=== PATIENT | female | born 1945 | race Caucasian/White ===

== ENCOUNTER → 2017-10-06 | Outpatient (CLI) | payer BC ==
[2017-10-06 17:45] LABS: BASO % 0.3 %; BASO ABS # 0.02 K/uL (0-0.2); EOS % 1.5 %; HEMATOCRIT 48.3 % (37-47); HEMOGLOBIN 16.1 g/dL (12.0-16.0); IG# 0.02 K/uL (0.00-0.02); LYMPH % 27.4 %; LYMPH ABS # 1.83 K/uL (1.2-3.4); MEAN CORPUSCULAR HEMOGLOBIN 30.3 pg (25-34); MEAN CORPUSCULAR HGB CONC 33.3 g/dl (32-36); MEAN PLATELET VOLUME 11.1 fL (7.4-10.4); MONO % 7.5 %; PLATELET COUNT 290 K/uL (130-400); RED CELL DISTRIBUTION WIDTH CV 15.4 % (11.5-14.5); RED CELL DISTRIBUTION WIDTH SD 51.6 fL (36.4-46.3); WHITE BLOOD COUNT 6.67 K/uL (4.8-10.8)
[2017-10-06 18:26] LABS: ALBUMIN 3.6 gm/dl (3.4-5.0); ALT/SGPT 22 U/L (12-78); AST/SGOT 22 U/L (15-37); BLOOD UREA NITROGEN 13 mg/dl (7-18); CALCIUM 9.3 mg/dl (8.5-10.1); CARBON DIOXIDE 29 mmol/L (21-32); CREATININE 1.12 mg/dl (0.60-1.20); GLUCOSE 95 mg/dl (70-99); POTASSIUM 4.1 mmol/L (3.5-5.1); SODIUM 137 mmol/L (136-145)
[2017-10-06 18:36] LABS: ALKALINE PHOSPHATASE 81 U/L (45-117); CHOLESTEROL 173 mg/dl (0-200); LDL CHOLESTEROL CALCULATED 102 mg/dl; TOTAL PROTEIN 8.1 gm/dl (6.4-8.2)
== END | disposition home or self-care (01) ==
LOC: C.LABMFLN 11:41
PROVIDERS: ATTEND Family Medicine
DX: F32.9 Major depressive disorder, single episode, unspecified (principal); E78.5 Hyperlipidemia, unspecified

== ENCOUNTER 2020-06-20 15:20 | Observation (INO) ==
[2020-06-20] MEDS ORDERED: fentaNYL citrate 100 MCG/2 ML VIAL IV STA (15:50)
--- NOTE | 2020-06-20 16:05 | XRay Report ---
SINGLE VIEW CHEST CLINICAL HISTORY: Dyspnea. FINDINGS: 2 AP, portable, upright chest radiographs are compared to study dated 02/29/2020. Impression degraded The cardiomediastinal silhouette is unremarkable noting atherosclerotic calcification of the thoracic aorta. Emphysematous change is suspected. Chronic interstitial thickening is similar to pre vious. Scarring/atelectasis is noted at the lung bases. No airspace consolidation or large pleural ef fusion is identified. There is asymmetric nodularity identified at the right apex. No pneumothorax is seen. The skeletal structures are osteopenic. The bony thorax is grossly intact. IMPRESSION: 1. No acute cardiopulmonary abnormality is identified. 2. Suspect emphysema. 3. There is asymmetric nodularity seen at the right apex. Although this could represent pleural-paren chymal scarring, follow-up with a dedicated chest CT is recommended to exclude underlying pulmonary l esion. ACT 112: Negative or not required by law. Electronically signed by: Santos Pedersen M.D. 06/20/2020 4:03 PM
--- NOTE | 2020-06-20 16:16 | Electrocardiogram Report ---
Test Reason : Blood Pressure : / mmHG Vent. Rate : 108 BPM Atrial Rate : 108 BPM P-R Int : 162 ms QRS Dur : 060 ms QT Int : 334 ms P-R-T Axes : 050 -23 042 degrees QTc Int : 447 ms Poor data quality, interpretation may be adversely affected Sinus tachycardia Normal ECG When compared with ECG of 29-FEB-2020 09:07, No significant change was found Confirmed by Piter Coffey ([id number]) on 06/20/2020 4:16:27 PM Referred By: Confirmed By:Piter Coffey
[2020-06-20 16:37] LABS: Basophils # (auto) 0.02 K/uL (0-0.2); Basophils % (auto) 0.3 %; Eosinophils # (auto) 0.06 K/uL (0-0.5); Eosinophils % (auto) 0.8 %; Hematocrit (blood only) 41.4 % (37-47); Hemoglobin 13.5 g/dL (12.0-16.0); Immature Granulocytes # (auto) 0.01 K/uL (0.00-0.02); Immature Granulocytes % (auto) 0.1 %; Lymphocytes % (auto) 20.3 %; Mean Corpuscular Hgb Conc 32.6 g/dL (32-36); Mean Platelet Volume 9.4 fL (7.4-10.4); Monocytes # (auto) 0.75 K/uL (0.11-0.59); Monocytes % (auto) 9.5 %; Neutrophils # (auto) 5.44 K/uL (1.4-6.5); Platelet Count 252 K/uL (130-400); RDW Coefficient of Variation 15.1 % (11.5-14.5); RDW Standard Deviation 48.7 fL (36.4-46.3); Red Blood Count 4.65 M/uL (4.2-5.4); White Blood Count 7.88 K/uL (4.8-10.8)
[2020-06-20 16:54] LABS: Alanine Aminotransferase 14 U/L (12-78); Albumin Level 3.1 gm/dl (3.4-5.0); Aspartate Aminotransferase 12 U/L (15-37); Blood Urea Nitrogen 14 mg/dl (7-18); Carbon Dioxide 24 mmol/L (21-32); Chloride 111 mmol/L (98-107); Creatinine Clr Calc Pharmacy 39.1 ml/min; Est GFR (African American) 70.5; Est GFR (Non-African American) 60.9; Glucose 95 mg/dl (70-99); Potassium 3.9 mmol/L (3.5-5.1); Sodium 141 mmol/L (136-145)
[2020-06-20 16:59] LABS: Albumin Globulin Ratio 0.7 (0.9-2); Alkaline Phosphatase 61 U/L (45-117); Bilirubin,Total 0.5 mg/dl (0.2-1); Globulin 4.3 gm/dl (2.5-4.0); Total Protein 7.4 gm/dl (6.4-8.2); Troponin I < 0.015 ng/ml (0-0.045)
[2020-06-20 17:30] LABS: D Dimer 2210 ug/L FEU (0-500)
[2020-06-20] MEDS ORDERED: OPTIRAY 320 125ml IV ONE (18:14)
--- NOTE | 2020-06-20 18:26 | Emergency Department Note ---
Impression & Plan Hypoxia, Chronic obstructive pulmonary disease, D-dimer, elevated ED Provider Note INFORMANT: Patient ED PROVIDER(S): Isidoro Galvez MD CHIEF COMPLAINT: Hypoxia PLAN: Disposition: Admitted Condition: Good MEDICAL DECISION MAKING: Patient presented from the surgery center because of persistent hypoxia after shoulder surgery. She states she is feeling well today and went to surgery. She did receive a nerve block. She received IV fentanyl as well. The patient presented here and was feeling well. She had moderate pain in her arm from the surgery. She was given a dose of IV fentanyl. She was monitored. She was maintained on oxygen and then weaned to room air. The patient had an unremarkable CBC and chemistry panel. Troponin was negative. ECG shows a mild sinus tachycardia but no acute ischemia. The patient had a negative chest x- ray. The patient had a significantly elevated D-dimer. Even though the patient was weaned off of oxygen when she attempted to ambulate the patient's oxygen dr opped significantly to 79%. In light of the hypoxia and anesthesias concern for PE the patient underwent CT PE study testing. This was negative for acute process. The patient had some adenopathy in abnormality of the right upper lobe. She was informed and the need for follow-up CT imaging. Due to the persistent hypoxia when off oxygen she was given a dose of Solu-Medrol and a DuoNeb. She will need further management in the hospital. She was observed for several hours but continues to need supplemental oxygen which she does not usually use at home. Consultation was made with Dr. Pang of internal medicine. Patient was evaluated in ER and admitted for further management. Triage Nursing notes reviewed and agree them. Prior medical records reviewed regarding recent surgery treatment today. Vital Signs: reviewed and remarkable for hypoxia off of supplemental oxygen Differential diagnosis: Complication of nerve block, reactive airway disease, pneumonia, pneumothorax, COPD, CHF, infections, cardiac ischemia, pulmonary embolism, musculoskeletal, gastrointestinal, as well as other pathologies. Diagnostics interpreted by me: ECG: Twelve-lead ECG reveals sinus tachycardia at 108 bpm. There is no evidence of ST elevation or depression. No PACs or PVCs. Normal axis and QRS. Cardiac Monitoring: Cardiac monitoring ordered by me: The patient was placed on continuous cardiac monitoring and observed. It revealed a normal sinus rhythm at 92 beats per minute without ectopy or evidence of dysrhythmia. Imaging studies: Chest x-ray. Findings: A chest x-ray was performed and revealed no pneumothorax, effusion, infiltrate, pulmonary edema, free air under the diaphragm, or wide mediastinum. Nodule noted in the right upper lobe that radiology recommended CT imaging for further evaluation. Patient states she is aware of this. Consultation(s): Dr. Pang of internal medicine. HPI: The patient is a 68 year old female who presents to the Emergency Room with complaints of hypoxia from the surgery center. This started a few hours ago after having general anesthesia for a right wrist surgery and is persisting. The patient also notes the following associated symptoms, pain in the right wrist otherwise no difficulty breathing. The patient has been given an albuterol treatment and oxygen for relieving factors. Current pain is rated as 5/10. Patient states she was in good health prior to the procedure. Nursing states that the patient was tested for coronavirus prior to surgery and was negative. Pt denies LOC, headache, fevers, chills, diaphoresis, visual changes, neck pain, chest pain, breathing difficulties, nausea, vomiting, abdominal pain, back pain, melena, hematochezia, urinary symptoms, numbness, weakness, lymphadenopathy, rash, or other complaints. ROS: See above HPI for pertinent positives & negatives. A total of 10 systems reviewed and were otherwise negative. PAST MEDICAL HISTORY:See Below, COPD PAST SURGICAL HISTORY:See Below, FAMILY HISTORY:See Below SOCIAL HISTORY:See Below, retired HOME MEDICATIONS:See Below ALLERGIES:See Below VITALS:See Below PHYSICAL EXAMINATION: GENERAL: Awake, alert, well-appearing, in no distress HENT: Normocephalic, atraumatic. Oropharynx unremarkable. EYES: Normal conjunctiva. Sclera non-icteric. NECK: Inspection normal. Non-tender. Supple. No nuchal rigidity. FROM. No masses. RESPIRATORY: Clear to auscultation. No wheezes. No rales. Normal respiratory effort. CARDIAC: Normal rate. Normal rhythm. No murmurs. No rubs. Extremities warm and well perfused. Pulses equal. No JVD. GI: Soft, non-distended. No tenderness to palpation. No rebound or guarding. No masses. RECTAL: Deferred. MUSCULOSKELETAL: Right upper extremity casted post surgery. Chest examination reveals no tenderness. The back is symmetrical on inspection without obvious abnormality. There is no CVA tenderness to palpation. No joint edema. LOWER EXTREMITIES: Calves are equal size bilaterally and non-tender. No edema. No discoloration. NEURO: Normal sensorium. No sensory or motor deficits noted. SKIN: No rash or jaundice noted. ED COURSE: Critical Care: None Isidoro Galvez MD Past Med/Surg History Medical History (Updated 06/20/20 @ 18:21 by Isidoro Galvez MD) Amaurosis fugax Cervicalgia Chronic obstructive pulmonary disease Depression Fibrocystic breast disease Generalized anxiety disorder History of TIA (transient ischemic attack) Hyperlipidemia Postmenopausal osteoporosis Solitary pulmonary nodule Surgical History (Updated 06/20/20 @ 20:21 by Angel Reno) History of cataract surgery BILATERAL History of temporal artery biopsy (03/05/20) Left Temporal Artery Biopsy Dr. Rodriguez 03/05/2020 S/P appendectomy S/P breast biopsy S/P colonoscopy 2013 S/P hysterectomy Family History Father Coronary heart disease Sister Coronary heart disease Son Coronary heart disease Brother Diabetes Heart disease Hypertension Aunt Cancer Denies family history of Ovarian cancer Prostate cancer Myocardial infarction Breast cancer Social History Smoking Status: Former smoker Tobacco Type: Cigarettes Age Started Using Tobacco: 26; Age Quit Using Tobacco: 58; packs per day: 1; Second Hand Exposure: No; Hx Alcohol Use: No Hx Substance Use: No Preferred Language: Maltese Communication Ability: Effective Visual Impairment: Limited Hearing Ability: Hard of Hearing Copra Processor Required: No Beliefs That Will Affect Care: None marital status: / Current Living Situation: Alone current occupational status: retired current occupation: caregiver Feels Safe at Home: Yes Childhood Exposure to Second-Hand Smoke: Yes caffeine: Yes Dental Care, Regularly: Yes Physical Activity Frequency: Daily Seatbelt Use: always Sunscreen Use: Yes Do you think of yourself as: straight/heterosexual Assistive Devices: Glasses Allergies Allergies Allergy/AdvReac Type Severity Reaction Status Date / Time atorvastatin Allergy Mild leg cramps Verified 04/04/20 10:00 ibandronate sodium Allergy Mild leg cramps Verified 04/04/20 10:00 [From Boniva] influenza virus vacc Allergy Mild leg cramps Verified 04/04/20 10:00 trivalent, split [From Fluzone] Penicillins Allergy Mild Rash Verified 04/04/20 10:00 Home Meds Home Medications Medication Instructions Recorded Confirmed latanoprost 0.005 % eye drops 1 drops OP QPM 02/07/20 06/20/20 escitalopram oxalate 10 mg PO QAM 02/28/20 06/20/20 potassium gluconate 595 mg PO QAM 02/28/20 06/20/20 Previous Rx's Medication Instructions Recorded calcium carbonate 600 mg (1,500 1 tab PO DAILY #90 tab 02/21/19 mg)-vitamin D3 400 unit tablet cyanocobalamin (vitamin B-12) 1,000 mcg PO DAILY #90 tab 02/21/19 1,000 mcg tablet,extended release multivitamin 1 tab PO DAILY #90 tab 02/21/19 tiotropium bromide 18 mcg capsule 1 cap INHALATION DAILY #90 puffs 08/08/19 with inhalation device aspirin 81 mg tablet,delayed 81 mg PO DAILY #30 tab 04/04/20 release pravastatin 20 mg tablet 20 mg PO DAILY #90 tab 04/04/20 Results & Data (ED) Vital Signs Vital Signs - 24 hr 06/20/20 15:28 06/20/20 15:30 06/20/20 15:47 Temperature 36.7 C Temperature Source Oral Pulse Rate 110 H 114 H 114 H Pulse Rate [Right Finger] Pulse Rate from SpO2 Sensor 111 H 112 H Respiratory Rate 23 20 26 H Respiratory Effort / Characteristics Non-Labored Spontaneous Respiratory Depth Normal Respiratory Pattern Regular Blood Pressure 104/89 104/89 Blood Pressure [Left Arm] Blood Pressure Mean 95 94 Blood Pressure Mean [Left Arm] Blood Pressure Position Sitting Blood Pressure Position [Left Arm] Pulse Oximetry 94 87 L 94 Oxygen Delivery Method Nasal Cannula Room Air Nasal Cannula Oxygen Flow Rate 3 3 Sepsis Recent Fever Within 48 Hours No Sepsis New/Unexplained Change in Mental Status N/A Sepsis Action Taken by Nursing No Action Required 06/20/20 15:50 06/20/20 16:00 06/20/20 16:10 Temperature Temperature Source Pulse Rate 92 H 91 H 90 Pulse Rate [Right Finger] Pulse Rate from SpO2 Sensor 93 H 90 90 Respiratory Rate 23 20 30 H Respiratory Effort / Characteristics Respiratory Depth Respiratory Pattern Blood Pressure Blood Pressure [Left Arm] Blood Pressure Mean Blood Pressure Mean [Left Arm] Blood Pressure Position Blood Pressure Position [Left Arm] Pulse Oximetry 95 96 96 Oxygen Delivery Method Nasal Cannula Nasal Cannula Nasal Cannula Oxygen Flow Rate 3 3 3 Sepsis Recent Fever Within 48 Hours Sepsis New/Unexplained Change in Mental Status Sepsis Action Taken by Nursing 06/20/20 16:20 06/20/20 16:30 06/20/20 16:31 Temperature Temperature Source Pulse Rate 94 H 90 89 Pulse Rate [Right Finger] Pulse Rate from SpO2 Sensor 94 H 89 88 Respiratory Rate 34 H 17 31 H Respiratory Effort / Characteristics Respiratory Depth Respiratory Pattern Blood Pressure 139/88 Blood Pressure [Left Arm] Blood Pressure Mean 104 Blood Pressure Mean [Left Arm] Blood Pressure Position Blood Pressure Position [Left Arm] Pulse Oximetry 93 97 96 Oxygen Delivery Method Nasal Cannula Nasal Cannula Nasal Cannula Oxygen Flow Rate 3 3 3 Sepsis Recent Fever Within 48 Hours Sepsis New/Unexplained Change in Mental Status Sepsis Action Taken by Nursing 06/20/20 16:40 06/20/20 16:50 06/20/20 17:00 Temperature Temperature Source Pulse Rate 98 H 93 H 90 Pulse Rate [Right Finger] Pulse Rate from SpO2 Sensor 98 H 93 H 91 H Respiratory Rate 22 27 H 25 H Respiratory Effort / Characteristics Respiratory Depth Respiratory Pattern Blood Pressure 124/88 Blood Pressure [Left Arm] Blood Pressure Mean 94 Blood Pressure Mean [Left Arm] Blood Pressure Position Blood Pressure Position [Left Arm] Pulse Oximetry 93 95 95 Oxygen Delivery Method Nasal Cannula Nasal Cannula Nasal Cannula Oxygen Flow Rate 3 3 3 Sepsis Recent Fever Within 48 Hours Sepsis New/Unexplained Change in Mental Status Sepsis Action Taken by Nursing 06/20/20 17:10 06/20/20 17:20 06/20/20 19:18 Temperature Temperature Source Pulse Rate 92 H 93 H Pulse Rate [Right Finger] 97 H Pulse Rate from SpO2 Sensor 92 H 92 H Respiratory Rate 21 15 16 Respiratory Effort / Characteristics Non-Labored Spontaneous Respiratory Depth Normal Respiratory Pattern Regular Blood Pressure Blood Pressure [Left Arm] 140/98 Blood Pressure Mean Blood Pressure Mean [Left Arm] 112 Blood Pressure Position Blood Pressure Position [Left Arm] Lying Pulse Oximetry 92 93 94 Oxygen Delivery Method Nasal Cannula Room Air Nasal Cannula Oxygen Flow Rate 3 3 Sepsis Recent Fever Within 48 Hours Sepsis New/Unexplained Change in Mental Status Sepsis Action Taken by Nursing 06/20/20 19:24 06/20/20 19:28 Temperature Temperature Source Pulse Rate Pulse Rate [Right Finger] 90 Pulse Rate from SpO2 Sensor Respiratory Rate 24 Respiratory Effort / Characteristics Non-Labored Spontaneous SOB on Exertion Respiratory Depth Respiratory Pattern Blood Pressure Blood Pressure [Left Arm] Blood Pressure Mean Blood Pressure Mean [Left Arm] Blood Pressure Position Blood Pressure Position [Left Arm] Pulse Oximetry 79 L 79 L Oxygen Delivery Method Room Air Room Air Oxygen Flow Rate Sepsis Recent Fever Within 48 Hours Sepsis New/Unexplained Change in Mental Status Sepsis Action Taken by Nursing Laboratory Data Result diagrams: 06/20/20 16:23 06/20/20 16:23 Lab Results 06/20/20 06/20/20 06/20/20 Range/Units 16:23 16: 16:23 WBC 7.88 (4.8-10.8) K/uL RBC 4.65 (4.2-5.4) M/uL Hgb 13.5 (12.0-16.0) g/dL Hct 41.4 (37-47) % MCV 89.0 (80-100) fL MCH 29.0 (25-34) pg MCHC 32.6 (32-36) g/dL RDW Std Deviation 48.7 H (36.4-46.3) fL RDW Coeff of Faviola 15.1 H (11.5-14.5) % Plt Count 252 (130-400) K/uL MPV 9.4 (7.4-10.4) fL Immature Gran % (Auto) 0.1 % Neut % (Auto) 69.0 % Lymph % (Auto) 20.3 % [place] % (Auto) 9.5 % Eos % (Auto) 0.8 % Baso % (Auto) 0.3 % Neut # (Auto) 5.44 (1.4-6.5) K/uL Lymph # (Auto) 1.60 (1.2-3.4) K/uL [place] # (Auto) 0.75 H (0.11-0.59) K/uL Eos # (Auto) 0.06 (0-0.5) K/uL Baso # (Auto) 0.02 (0-0.2) K/uL Immature Gran # (Auto) 0.01 (0.00-0.02) K/uL D-Dimer 2210 H* (0-500) ug/L FEU Sodium 141 (136-145) mmol/L Potassium 3.9 (3.5-5.1) mmol/L Chloride 111 H (98-107) mmol/L Carbon Dioxide 24 (21-32) mmol/L Anion Gap 5.0 (3-11) BUN 14 (7-18) mg/dl Creatinine 0.91 (0.6-1.2) mg/dl Est Cr Clr Drug Dosing 39.1 ml/min Est GFR ( Amer) 70.5 Est GFR (Non-Af Amer) 60.9 BUN/Creatinine Ratio 15.0 (10-20) Glucose 95 (70-99) mg/dl Calcium 9.0 (8.5-10.1) mg/dl Total Bilirubin 0.5 (0.2-1) mg/dl AST 12 L (15-37) U/L ALT 14 (12-78) U/L Alkaline Phosphatase 61 (45-117) U/L Troponin I < 0.015 (0-0.045) ng/ml Total Protein 7.4 (6.4-8.2) gm/dl Albumin 3.1 L (3.4-5.0) gm/dl Globulin 4.3 H (2.5-4.0) gm/dl Albumin/Globulin Ratio 0.7 L (0.9-2) Administered Medications Discontinued Medications Albuterol (Albut/Ipratrop 3mg/0.5mg Neb 3 Ml Vial) 3 ml NEB NOW STA Stop: 06/20/20 19:00 Last Admin: 06/20/20 19:27 Dose: 3 ml Documented by: [id number] Fentanyl Citrate (Fentanyl Citrate 100 Mcg/2 Ml Vial) 50 mcg IV NOW STA Stop: 06/20/20 15:51 Last Admin: 06/20/20 16:30 Dose: 50 mcg Documented by: [id number] Ioversol (Optiray 320 125ml) 120 ml IV ONCE ONE Stop: 06/20/20 18:15 Last Admin: 06/20/20 18:15 Dose: 120 ml Documented by: [id number] Methylprednisolone (Methylprednisolone 125 Mg/2 Ml Vial) 125 mg IV NOW STA Stop: 06/20/20 19:00 Last Admin: 06/20/20 19:15 Dose: 125 mg Documented by: [id number] Morphine Sulfate (Morphine Sulfate 2 Mg/Ml Carp) Confirm Administered Dose 2 mg .ROUTE .STK-MED ONE Stop: 06/20/20 21:17 Last Admin: 06/20/20 21:17 Dose: 2 mg Documented by: [id number] Discharge Plan Visit Data Chief Complaint: Respiratory Problems Stated Complaint: TACHYCARDIA, HYPOXIA ED Provider: Isidoro Galvez Discharge Problem: Hypoxia, Chronic obstructive pulmonary disease, D-dimer, elevated Patient Disposition: Admitted As Inpatient Discharge Instructions Interventions: ED Discharge Assessment Last Done: 06/20/20 21:01
--- NOTE | 2020-06-20 18:51 | CT Scan Report ---
CHEST CTA for PULMONARY ARTERIES CT DOSE: 320.58 mGy.cm HISTORY: Shortness of breath. Positive d-dimer. TECHNIQUE: Multiaxial CT images of the chest were performed following the intravenous administration of contrast to evaluate the pulmonary arteries. Maximal intensity projection images were also obtaine d. A dose lowering technique was utilized adhering to the principles of ALARA. COMPARISON STUDY: Chest 06/20/2020. FINDINGS: There is an old, healed midsternal fracture. Normal caliber thoracic aorta with no evidence for dissection. No pleural or pericardial effusions. The heart is normal in size. No filling defects within the pulmonary arteries to suggest pulmonary embolus. No mediastinal hilar lymphadenopathy. Li mited views of the upper abdomen demonstrate normal liver and spleen. Normal esophagus. No suspicious lytic or blastic osseous lesions. No pneumothorax. The central airways are patent. Moderate emphysem a. Biapical irregular densities. These favor scarring. There is asymmetric focal irregular thickening within the right lung apex on image 234. This measures 12 mm in thickness. This also favors scarring but bears watching on future examinations. 6 mm nodule along the left major fissure on image 119. A few bibasilar densities favor subsegmental atelectasis. Mild diffuse interstitial thickening which is likely chronic. IMPRESSION: 1. No evidence for pulmonary embolus. 2. Biapical irregular densities. These favor scarring. However, there is asymmetric irregular focal t hickening at the right lung apex measuring up to 12 mm in thickness. This also favors scarring. [address] follow-up recommended to ensure stability. 3. A 6 mm nodule along the left major fissure. This also requires follow-up. 4. Emphysema. ACT 112: Negative or not required by law. Electronically signed by: Jj Whitney M.D. 06/20/2020 6:50 PM
[2020-06-20] MEDS ORDERED: methylPREDNISolone 125 MG/2 ML VIAL IV STA (18:59)
[2020-06-20] MEDS ORDERED: ALBUT/IPRATROP 3MG/0.5MG NEB 3 ML VIAL NEB STA (18:59)
--- NOTE | 2020-06-20 20:24 | Medical Student H&P ---
Date of Service June 20, 2020 Assessment & Plan (1) Hypoxia: Desaturation to 79% with ambulation. Differential includes: COPD exacerbation possibly exacerbated by anesthesia, pneumothorax, respiratory infection Labs show no sign of acute infection. Coronavirus was negative 02/29/2020. Chest Xray and CT show no pneumothorax or focal consolidation; show signs consistent with emphysema Treatment plan includes telemetry admission, nebulizer treatment q4, oxygen as needed, consider azithromycin for COPD exacerbation. Short term goals: oxygen titration to room air. alf goals: smoking cessation, recommend scheduling PFT's outpt, CT notes a 6 mm nodule along the left major fissure with outpt follow up recommended. (2) Post-operative state: Patient is currently splinted and pain is well controlled. History of Present Illness Chief Complaint: Difficulty Breathing Primary Care Provider: Maria C Thornton MD Lisa is a 75y/o female with a pmhx of COPD and TIA. She presents with hypoxic respiratory failure from the surgery center following a right upper extremity procedure. She endorses subjective dyspnea, noting slight improvement in the ED. In the ED she desaturated to 79% with assisted ambulation to the bathroom. In the week leading up to surgery she did notice mildly increased shortness of breath at home with exertion. She says that she coughed "once or twice" today with some yellow sputum. In February she had an outpatient surgical procedure which she tolerated well, she was successfully released from recovery after approximally 45 minutes without any difficulty breathing. At home Lisa does not require oxygen and is a current pack per day cigarette smoker. Allergies Allergy/AdvReac Type Severity Reaction Status Date / Time atorvastatin Allergy Mild leg cramps Verified 04/04/20 10:00 ibandronate sodium Allergy Mild leg cramps Verified 04/04/20 10:00 [From Boniva] influenza virus vacc Allergy Mild leg cramps Verified 04/04/20 10:00 trivalent, split [From Fluzone] Penicillins Allergy Mild Rash Verified 04/04/20 10:00 Home Medications Home Medications Medication Instructions Recorded Confirmed Type calcium carbonate 600 mg (1,500 1 tab PO DAILY #90 tab 02/21/19 06/20/20 Rx mg)-vitamin D3 400 unit tablet cyanocobalamin (vitamin B-12) 1,000 mcg PO DAILY #90 tab 02/21/19 06/20/20 Rx 1,000 mcg tablet,extended release multivitamin 1 tab PO DAILY #90 tab 02/21/19 06/20/20 Rx tiotropium bromide 18 mcg capsule 1 cap INHALATION DAILY #90 puffs 08/08/19 06/20/20 Rx with inhalation device latanoprost 0.005 % eye drops 1 drops OP QPM 02/07/20 06/20/20 History escitalopram oxalate 10 mg PO QAM 02/28/20 06/20/20 History potassium gluconate 595 mg PO QAM 02/28/20 06/20/20 History aspirin 81 mg tablet,delayed 81 mg PO DAILY #30 tab 04/04/20 06/20/20 Rx release pravastatin 20 mg tablet 20 mg PO DAILY #90 tab 04/04/20 06/20/20 Rx Past Med/Surg History Medical History (Updated 06/20/20 @ 18:21 by Isidoro Galvez MD) Amaurosis fugax Cervicalgia Chronic obstructive pulmonary disease Depression Fibrocystic breast disease Generalized anxiety disorder History of TIA (transient ischemic attack) Hyperlipidemia Postmenopausal osteoporosis Solitary pulmonary nodule Surgical History (Updated 06/20/20 @ 20:21 by Angel Reno) History of cataract surgery BILATERAL History of temporal artery biopsy (03/05/20) Left Temporal Artery Biopsy Dr. Rodriguez 03/05/2020 S/P appendectomy S/P breast biopsy S/P colonoscopy 2013 S/P hysterectomy Family History Father Coronary heart disease Sister Coronary heart disease Son Coronary heart disease Brother Diabetes Heart disease Hypertension Aunt Cancer Denies family history of Ovarian cancer Prostate cancer Myocardial infarction Breast cancer Social History Smoking Status: Former smoker Tobacco Type: Cigarettes Age Started Using Tobacco: 26; Age Quit Using Tobacco: 58; packs per day: 1; Second Hand Exposure: No; Hx Alcohol Use: No Hx Substance Use: No Preferred Language: Iranian Communication Ability: Effective Visual Impairment: Limited Hearing Ability: Hard of Hearing Human Services Supervisor Required: No Beliefs That Will Affect Care: None marital status: / Current Living Situation: Alone current occupational status: retired current occupation: caregiver Feels Safe at Home: Yes Childhood Exposure to Second-Hand Smoke: Yes caffeine: Yes Dental Care, Regularly: Yes Physical Activity Frequency: Daily Seatbelt Use: always Sunscreen Use: Yes Do you think of yourself as: straight/heterosexual Assistive Devices: Glasses Review of Systems no fever, no sweats, no fatigue and no weakness + dyspnea and + sputum production; no chest congestion and no pain on inspiration no chest pain no abdominal pain, no constipation and no diarrhea/loose stools no urinary frequency and no urinary urgency No pain with urination no localized weakness no visual symptoms Physical Exam Constitutional: comfortable Respiratory: symmetric chest movement; no labored breathing and not tachypneic Auscultation: lungs clear to auscultation bilaterally Cardiovascular: Rate/Rhythm: + tachycardic Heart Sounds: normal S1 and normal S2; no murmur and no cardiac rub Vessels: no JVD Gastrointestinal (Abdomen): Inspection/Auscultation: normal bowel sounds; abdomen not distended Percussion/Palpation: abdomen nontender Results & Data ([facility]) Vital Signs (Past 12 Hours) Vital Signs Temp Pulse Pulse Resp BP BP Pulse Ox 06/20/20 19:28 90 24 79 L 06/20/20 19:24 79 L 06/20/20 19:18 97 H 16 140/98 94 06/20/20 17:20 93 H 15 93 06/20/20 17:10 92 H 21 92 06/20/20 17:00 90 25 H 124/88 95 06/20/20 16:50 93 H 27 H 95 06/20/20 16:40 98 H 22 93 06/20/20 16:31 89 31 H 139/88 96 06/20/20 16:30 90 17 97 06/20/20 16:20 94 H 34 H 93 06/20/20 16:10 90 30 H 96 06/20/20 16:00 91 H 20 96 06/20/20 15:50 92 H 23 95 06/20/20 15:47 114 H 26 H 94 06/20/20 15:30 36.7 C 114 H 20 104/89 87 L 06/20/20 15:28 110 H 23 104/89 94 Laboratory Results Lab Results 06/20/20 06/20/20 06/20/20 Range/Units 16:23 16:23 16:23 WBC 7.88 (4.8-10.8) K/uL RBC 4.65 (4.2-5.4) M/uL Hgb 13.5 (12.0-16.0) g/dL Hct 41.4 (37-47) % MCV 89.0 (80-100) fL MCH 29.0 (25-34) pg MCHC 32.6 (32-36) g/dL RDW Std Deviation 48.7 H (36.4-46.3) fL RDW Coeff of Faviola 15.1 H (11.5-14.5) % Plt Count 252 (130-400) K/uL MPV 9.4 (7.4-10.4) fL Immature Gran % (Auto) 0.1 % Neut % (Auto) 69.0 % Lymph % (Auto) 20.3 % Pike % (Auto) 9.5 % Eos % (Auto) 0.8 % Baso % (Auto) 0.3 % Neut # (Auto) 5.44 (1.4-6.5) K/uL Lymph # (Auto) 1.60 (1.2-3.4) K/uL Pike # (Auto) 0.75 H (0.11-0.59) K/uL Eos # (Auto) 0.06 (0-0.5) K/uL Baso # (Auto) 0.02 (0-0.2) K/uL Immature Gran # (Auto) 0.01 (0.00-0.02) K/uL D-Dimer 2210 H* (0-500) ug/L FEU Sodium 141 (136-145) mmol/L Potassium 3.9 (3.5-5.1) mmol/L Chloride 111 H (98-107) mmol/L Carbon Dioxide 24 (21-32) mmol/L Anion Gap 5.0 (3-11) BUN 14 (7-18) mg/dl Creatinine 0.91 (0.6-1.2) mg/dl Est Cr Clr Drug Dosing 39.1 ml/min Est GFR ( Amer) 70.5 Est GFR (Non-Af Amer) 60.9 BUN/Creatinine Ratio 15.0 (10-20) Glucose 95 (70-99) mg/dl Calcium 9.0 (8.5-10.1) mg/dl Total Bilirubin 0.5 (0.2-1) mg/dl AST 12 L (15-37) U/L ALT 14 (12-78) U/L Alkaline Phosphatase 61 (45-117) U/L Troponin I < 0.015 (0-0.045) ng/ml Total Protein 7.4 (6.4-8.2) gm/dl Albumin 3.1 L (3.4-5.0) gm/dl Globulin 4.3 H (2.5-4.0) gm/dl Albumin/Globulin Ratio 0.7 L (0.9-2) Procalcitonin (0-0.5) ng/ml 06/20/20 06/20/20 Range/Units 23:08 23:08 WBC 6.03 (4.8-10.8) K/uL RBC 4.76 (4.2-5.4) M/uL Hgb 13.6 (12.0-16.0) g/dL Hct 42.6 (37-47) % MCV 89.5 (80-100) fL MCH 28.6 (25-34) pg MCHC 31.9 L (32-36) g/dL RDW Std Deviation 49.9 H (36.4-46.3) fL RDW Coeff of Faviola 15.1 H (11.5-14.5) % Plt Count 263 (130-400) K/uL MPV 9.9 (7.4-10.4) fL Immature Gran % (Auto) 0.2 % Neut % (Auto) 91.5 % Lymph % (Auto) 7.6 % Pike % (Auto) 0.7 % Eos % (Auto) 0.0 % Baso % (Auto) 0.0 % Neut # (Auto) 5.52 (1.4-6.5) K/uL Lymph # (Auto) 0.46 L (1.2-3.4) K/uL Pike # (Auto) 0.04 L (0.11-0.59) K/uL Eos # (Auto) 0.00 (0-0.5) K/uL Baso # (Auto) 0.00 (0-0.2) K/uL Immature Gran # (Auto) 0.01 (0.00-0.02) K/uL D-Dimer (0-500) ug/L FEU Sodium (136-145) mmol/L Potassium (3.5-5.1) mmol/L Chloride (98-107) mmol/L Carbon Dioxide (21-32) mmol/L Anion Gap (3-11) BUN (7-18) mg/dl Creatinine (0.6-1.2) mg/dl Est Cr Clr Drug Dosing ml/min Est GFR ( Amer) Est GFR (Non-Af Amer) BUN/Creatinine Ratio (10-20) Glucose (70-99) mg/dl Calcium (8.5-10.1) mg/dl Total Bilirubin (0.2-1) mg/dl AST (15-37) U/L ALT (12-78) U/L Alkaline Phosphatase (45-117) U/L Troponin I (0-0.045) ng/ml Total Protein (6.4-8.2) gm/dl Albumin (3.4-5.0) gm/dl Globulin (2.5-4.0) gm/dl Albumin/Globulin Ratio (0.9-2) Procalcitonin < 0.05 (0-0.5) ng/ml Diagnostic Findings CHEST CTA for PULMONARY ARTERIES CT DOSE: 320.58 mGy.cm HISTORY: Shortness of breath. Positive d-dimer. TECHNIQUE: Multiaxial CT images of the chest were performed following the intravenous administration of contrast to evaluate the pulmonary arteries. Maximal intensity projection images were also obtained. A dose lowering technique was utilized adhering to the principles of ALARA. COMPARISON STUDY: Chest 06/20/2020. FINDINGS: There is an old, healed midsternal fracture. Normal caliber thoracic aorta with no evidence for dissection. No pleural or pericardial effusions. The heart is normal in size. No filling defects within the pulmonary arteries to suggest pulmonary embolus. No mediastinal hilar lymphadenopathy. Limited views of the upper abdomen demonstrate normal liver and spleen. Normal esophagus. No suspicious lytic or blastic osseous lesions. No pneumothorax. The central airways are patent. Moderate emphysema. Biapical irregular densities. These favor scarring. There is asymmetric focal irregular thickening within the right lung apex on image 234. This measures 12 mm in thickness. This also favors scarring but bears watching on future examinations. 6 mm nodule along the left major fissure on image 119. A few bibasilar densities favor subsegmental atelectasis. Mild diffuse interstitial thickening which is likely chronic. IMPRESSION: 1. No evidence for pulmonary embolus. 2. Biapical irregular densities. These favor scarring. However, there is asymmetric irregular focal thickening at the right lung apex measuring up to 12 mm in thickness. This also favors scarring. [address] follow-up recommended to ensure stability. 3. A 6 mm nodule along the left major fissure. This also requires follow-up. 4. Emphysema. ACT 112: Negative or not required by law. Electronically signed by: Jj Whitney M.D. 06/20/2020 6:50 PM Dictated: 06/20/201839 Transcribed: 06/20/201839 ---- SINGLE VIEW CHEST CLINICAL HISTORY: Dyspnea. FINDINGS: 2 AP, portable, upright chest radiographs are compared to study dated 02/29/2020. Impression degraded The cardiomediastinal silhouette is unremarkable noting atherosclerotic calcification of the thoracic aorta. Emphysematous change is suspected. Chronic interstitial thickening is similar to previous. Scarring/atelectasis is noted at the lung bases. No airspace consolidation or large pleural effusion is identified. There is asymmetric nodularity identified at the right apex. No pneumothorax is seen. The skeletal structures are osteopenic. The bony thorax is grossly intact. IMPRESSION: 1. No acute cardiopulmonary abnormality is identified. 2. Suspect emphysema. 3. There is asymmetric nodularity seen at the right apex. Although this could represent pleural-parenchymal scarring, follow-up with a dedicated chest CT is recommended to exclude underlying pulmonary lesion. ACT 112: Negative or not required by law. Electronically signed by: Santos Pedersen M.D. 06/20/2020 4:03 PM Dictated: 06/20/20 1601 Transcribed: 06/20/20 1601 ECG Additional Comments: Test Reason : Blood Pressure : / mmHG Vent. Rate : 108 BPM Atrial Rate : 108 BPM P-R Int : 162 ms QRS Dur : 060 ms QT Int : 334 ms P-R-T Axes : 050 -23 042 degrees QTc Int : 447 ms Poor data quality, interpretation may be adversely affected Sinus tachycardia Normal ECG When compared with ECG of 29-FEB-2020 09:07, No significant change was found Confirmed by Piter Coffey ([id number]) on 06/20/2020 4:16:27 PM Code Status & VTE Plan Code Status Full Code Supervising Attestation Patient seen and examined, chart reviewed, case discussed with SHERRI Reno and I agree with his assessment and plan as documented above. Briefly, patient is a 75yo C female with history of COPD presenting with hypoxia following shoulder surgery performed today. Patient reports pain is well controlled. She feels mildly short of breath. + slight cough productive for yellow sputum. Patient reports mild dyspnea with home activities in the days preceding surgery - specifically she would become dyspneic with walking up her stairs or carrying her laundry basket. No additional complaints at this time, specifically no CP/fever/chills/wheezing. Covid-19 testing performed pre-operatively and reported to be negative 2 days ago. On exam she is afebrile, HD stable, NAD, speaking in complete sentences without conversational dyspnea. Desaturated to 79% with ambulation in ER Skin - Dressing in place c/d/i HEENT - NC/AT, PERRL, EOMI, MMM, Neck supple Heart - +S1/S2, regular, no m/r/g Lungs - diminished breath sounds throughout, no rales/rhonchi/wheezes Abd - +BS, soft, NT/ND Ext - no edema Labs and images reviewed. D-dimer elevated at 2210 Chest CTA wtih no PE, biapical irregular densities, known 6mm nodule and emphysema Assessment/Plan - 75yo C female with hypoxic respiratory failure following surgical intervention. Patient with history of COPD, history suggests mild symptoms of SOB/CASPER preceding surgery. No PE, CHF, PTX. -Admit to medical with telemetry -Supplemental O2 as needed - goal saturation 88-92% in patient with COPD -Continue home medications - Umeclidinium -DuoNebs as needed -Monitor respiratory status -Pain control as needed -Remainder of plan as above
[2020-06-20] MEDS ORDERED: MoRPHine SULFATE 2 MG/ML CARP IV PRN (21:13)
[2020-06-20] MEDS ORDERED: MoRPHine SULFATE 2 MG/ML CARP ONE (21:16)
[2020-06-20] MEDS ORDERED: POLYETHYLENE (MIRALAX) 17 GM PACK PO PRN (23:01)
[2020-06-20] MEDS ORDERED: ALBUT/IPRATROP 3MG/0.5MG NEB 3 ML VIAL NEB PRN (23:01)
[2020-06-20] MEDS ORDERED: LATANOPROST 0.005% OP SOLN 2.5 ML BTL OP SCH (23:01)
[2020-06-20] MEDS ORDERED: ONDANSETRON INJ 2 MG/ML 2 ML VIAL IV PRN (23:01)
[2020-06-20] MEDS ORDERED: ACETAMINOPHEN 325 MG TAB PO PRN (23:01)
[2020-06-20 23:30] LABS: Hematocrit (blood only) 42.6 % (37-47); Hemoglobin 13.6 g/dL (12.0-16.0); Immature Granulocytes # (auto) 0.01 K/uL (0.00-0.02); Immature Granulocytes % (auto) 0.2 %; Lymphocytes # (auto) 0.46 K/uL (1.2-3.4); Lymphocytes % (auto) 7.6 %; Mean Corpuscular Hemoglobin 28.6 pg (25-34); Mean Corpuscular Hgb Conc 31.9 g/dL (32-36); Mean Corpuscular Volume 89.5 fL (80-100); Mean Platelet Volume 9.9 fL (7.4-10.4); Monocytes # (auto) 0.04 K/uL (0.11-0.59); Monocytes % (auto) 0.7 %; Neutrophils # (auto) 5.52 K/uL (1.4-6.5); Neutrophils % (auto) 91.5 %; Platelet Count 263 K/uL (130-400); RDW Coefficient of Variation 15.1 % (11.5-14.5); RDW Standard Deviation 49.9 fL (36.4-46.3); Red Blood Count 4.76 M/uL (4.2-5.4); White Blood Count 6.03 K/uL (4.8-10.8)
--- NOTE | 2020-06-21 01:22 | Billing Data ---
Date of Service June 20, 2020 Coding Level of Care Code 96149 Initial Inpt Care Lvl 2
[2020-06-21] MEDS ORDERED: NON-FORMULARY MEDICATION (Potassium Gluconate 595 MG) PO SCH (09:00)
[2020-06-21] MEDS ORDERED: ESCITALOPRAM OXALATE 10 MG TAB PO SCH (09:00)
[2020-06-21] MEDS ORDERED: UMECLIDINIUM BROMIDE 62.5MCG/BLISTER 7 PUFFS/INHALER INH SCH (09:00)
[2020-06-21] MEDS ORDERED: NICOTINE 14 MG/24 HR PATCH TD SCH (09:00)
[2020-06-21] MEDS ORDERED: MULTIVITAMIN TAB PO SCH (09:00)
[2020-06-21] MEDS ORDERED: CYANOCOBALAMIN 500 MCG TABLET (VITAMIN B-12) PO SCH (09:00)
[2020-06-21] MEDS ORDERED: PRAVASTATIN SOD 20 MG TAB PO SCH (09:00)
[2020-06-21] MEDS ORDERED: CALCIUM 600MG + VIT D 400 IU TAB PO SCH (09:00)
[2020-06-21] MEDS ORDERED: ASPIRIN 81 MG ECTAB PO SCH (09:00)
[2020-06-21] MEDS: oxyCODONE/ACETAMINOPHEN 5mg/325mg TAB PO PRN ×2 (10:34→17:37)
--- NOTE | 2020-06-21 16:05 | Discharge Summary ---
Date of Service June 21, 2020 Admission HPI Per Admitting Provider Lisa is a 75y/o female with a pmhx of COPD and TIA. She presents with hypoxic respiratory failure from the surgery center following a right upper extremity procedure. She endorses subjective dyspnea, noting slight improvement in the ED. In the ED she desaturated to 79% with assisted ambulation to the bathroom. In the week leading up to surgery she did notice mildly increased shortness of breath at home with exertion. She says that she coughed "once or twice" today with some yellow sputum. In February she had an outpatient surgical procedure which she tolerated well, she was successfully released from recovery after approximally 45 minutes without any difficulty breathing. At home Lisa does not require oxygen and is a current pack per day cigarette smoker. Admission Exam Per Admitting Provider Constitutional: comfortable Respiratory: symmetric chest movement; no labored breathing and not tachypneic Auscultation: lungs clear to auscultation bilaterally Cardiovascular: Rate/Rhythm: + tachycardic Heart Sounds: normal S1 and normal S2; no murmur and no cardiac rub Vessels: no JVD Gastrointestinal (Abdomen): Inspection/Auscultation: normal bowel sounds; abdomen not distended Percussion/Palpation: abdomen nontender Principal Diagnosis Post-operative Hypoxemia Discharge Exam Constitutional WD/WN, vitals as above cooperative Eyes + anicteric sclerae ENMT external ear and nose normal, oropharynx normal Neck normal visual inspection Respiratory normal respiratory effort, lungs clear to auscultation Auscultation: no crackles, no rhonchi and no wheezes Good air movement Cardiovascular RRR, no murmur, no edema Heart Sounds: normal S1 and normal S2 Gastrointestinal (Abdomen) normal bowel sounds, soft, nontender, no hepatosplenomegaly Musculoskeletal R UE wrapped in PHIL bandage, in a sling Skin no rashes, warm and dry Psychiatric A+Ox3, euthymic affect Discharge Data Allergies Allergy/AdvReac Type Severity Reaction Status Date / Time atorvastatin Allergy Mild leg cramps Verified 04/04/20 10:00 ibandronate sodium Allergy Mild leg cramps Verified 04/04/20 10:00 [From Boniva] influenza virus vacc Allergy Mild leg cramps Verified 04/04/20 10:00 trivalent, split [From Fluzone] Penicillins Allergy Mild Rash Verified 08/07/20 10:00 Consultations 06/20/20 19:36 ED Decision to Admit Stat Ordered Studies 06/20/20 17:32 CT angio chest PE protocol Stat Hospital Course (1) Postoperative hypoxemia: Patient was sent to [facility] from the outpatient surgery center after she was found to be hypoxic in the post-operative period following a right arm orthopedic surgery. - on admission, CBC normal, procal not elevated. D-dimer elevated to 2200. Troponin undectectable. - CXR showing no evidence of consolidation or pneumothorax - Chest CTA showing no evidence of pulmonary embolism. Chronic emphysematous changes noted. Incidental Findings: Biapical irregular densities. These favor scarring. However, there is asymmetric irregular focal thickening at the right lung apex measuring up to 12 mm in thickness. This also favors scarring. A 6 mm nodule along the left major fissure. - as for the etiology of hypoxemia, infection felt to be unlikely. COPD exacerbation unlikely given lack increased sputum production and lack of wheezing on exam. Most likely cause thought to be from post-anesthesia and ventilator effects in the setting of underlying, chronic lung disease - patient received several breathing treatments while under our care - a two-step test was ordered on day of discharge: patient qualified for home O2 (1 liter at rest, 3 liters with ambulation). Home oxygen script provided. Outpatient items to do: Repeat two-step test, adjust home O2 as appropriate. Order follow up chest CT scan in 6 months for surveillance of nodule and irregularities. Continue smoking cessation counseling. Total Time Total Time Spent Total Time Spent (In Minutes): see attending attestation Discharge Plan Discharge Items Patient Disposition: Home - Self-Care Reason For Visit: HYPOXEMIC RESPIRATORY FAILURE Discharge Diagnosis: Acute Respiratory Failure with Hypoxemia Activity: Resume your previous activity Non-emergency contact: Primary Care Provider Call non-emergency contact if: your symptoms worsen Follow-up/Referrals: Maria C Thornton MD [Primary Care Provider] - Diet: Heart Healthy Addtl Attending Provider Instructions: You were hospitalized at [facility] after your oxygenation was found to be low following your outpatient surgery on 06/20/20. A chest xray was obtained on admission, which showed no evidence of a pneumonia. A cat scan of your chest was also ordered, which showed no evidence of a blood clot. It did show some irregularities in addition to a 6mm nodule on the left side. Radiology recommend a follow up cat scan of your chest in 6 months time for surveillance. You were given several breathing treatments while in the hospital, and your oxygen saturation improved while under our care. However, based on a "two-step" test, which assess your oxygen saturation while walking, you qualified for supplemental oxygen therapy at home. A script was placed for 1 liter of oxygen (delivered via nose piece) while at rest (please wear all the time, even when sleeping), and increase to 3 liters when walking (you will be provided with portable equipment). A private oxygen company will deliver supplies to your house after being discharged from the hospital. As for the cause of your low oxygenation - we found no evidence of a respiratory infection. You were not wheezing on exam, thus, we do not believe your COPD was in exacerbation. We feel the most likely explanation of your symptoms relates to residual anesthesia and being on a ventilator during your surgery on 06/20/20. We recommend you stop smoking cigarettes. Please take all of your home medications, as you had before coming into the hospital. Please follow up with your surgeon, as directed. Please follow up with your primary care physician within 1 week of discharge. Pending Studies at Discharge: No Stand-Alone Forms: [facility], Smoking Cessation Medications and DC Order Prescriptions: Continued tiotropium bromide 18 mcg capsule, w/inhalation device 1 cap inhalation DAILY Qty: 90 RF: 3 latanoprost 0.005 % drops 1 drops OP QPM RF: 0 calcium carbonate-vitamin D3 600 mg(1,500mg) -400 unit tablet 1 tab PO DAILY Qty: 90 RF: 3 cyanocobalamin (vitamin B-12) 1,000 mcg tablet extended release 1,000 mcg PO DAILY Qty: 90 RF: 3 multivitamin [Daily Multiple] tablet 1 tab PO DAILY Qty: 90 RF: 3 aspirin [Adult Low Dose Aspirin] 81 mg tablet,delayed release (DR/EC) 81 mg PO DAILY Qty: 30 RF: 2 pravastatin 20 mg tablet 20 mg PO DAILY Qty: 90 RF: 1 escitalopram oxalate 10 mg tablet 10 mg PO QAM RF: 0 potassium gluconate 595 mg (99 mg) Tablet Extended Release 595 mg PO QAM RF: 0 Discharge Orders: Discharge Order (Routine); Ordered 06/21/20 Ordered By: Shirley Baker/Other Patient Handouts: ED How to Quit Smoking Admission Data Admit Date/Time: 06/20/20 20:12 Attending Provider: Rosita Deng Admit Provider: Shahzad Keen Primary Care Provider: Maria C Thornton Other Providers: Sonia Pang Other Interventions: Discharge Summary Assessment (RN) Last Done: 06/21/20 16:05 Supervising Physician Co-Signing Physician Notes Resident Physician Supervision Note: I independently interviewed and examined the patient and verified the tinoco history and physical, reviewed labs and image studies, discussed the case with the resident Dr. Osman and agree with the findings and care plan. Resident Activity Tracking Resident Involvement: Resident Care Provided Care Provided: Adult Hospital Medicine
== END 2020-06-21 18:27 | disposition home or self-care (01) ==
LOC: ED 15:20 → 2N 20:12 → INTOOBSV 20:12 → SUATTDRO 20:12 → 2N 21:01